=== PATIENT | female | born 1950 | race Caucasian/White ===

== ENCOUNTER 2017-03-08 05:42 | Emergency (ER) | payer BC ==
[2017-03-08] MEDS ORDERED: NORMAL SALINE 10 ML SYRINGE FLUSH IVP PRN (06:07)
[2017-03-08 06:11] LABS: BASOPHILS # (AUTO) 0.11 10*3/UL; BASOPHILS % (AUTO) 1.4 % (0-1); EOSINOPHILS # (AUTO) 0.13 10*3/UL; EOSINOPHILS % (AUTO) 1.7 % (0-8); HEMATOCRIT 43.5 % (37.0-47.0); LYMPHOCYTES # (AUTO) 1.92 10*3/uL; MEAN CORPUSCULAR HEMOGLOBIN 28.7 PG (27-31); MEAN CORPUSCULAR HGB CONC 34.5 g/dL (33-37); MEAN CORPUSCULAR VOLUME 83.2 FL (81-99); MEAN PLATELET VOLUME 10.8 FL (7.4-12.2); MONOCYTES # (AUTO) 0.76 10*3/UL (0.3-0.8); NEUTROPHILS # (AUTO) 4.69 10*3/UL; NEUTROPHILS % (AUTO) 61.4 % (50-80); PLATELET MORPHOLOGY COMMENT NORMAL MORPHOLOGY (NORM); RBC MORPHOLOGY COMMENT NORMAL MORPHOLOGY (NORM); RED BLOOD COUNT 5.23 10^6/uL (4.20-5.40); WBC MORPHOLOGY COMMENT NORMAL MORPHOLOGY (NORM)
[2017-03-08] MEDS ORDERED: ASPIRIN 81 MG (BABY) CHEWABLE TABLET ONE (06:11)
[2017-03-08 06:12] VITALS: RESP 22; TEMP 97.7
[2017-03-08] MEDS: ASPIRIN 81 MG (BABY) CHEWABLE TABLET PO ONE (06:14)
[2017-03-08] MEDS: Sodium Chloride 0.9% 1,000 ML PRIMARY IV ONE (06:14)
[2017-03-08 06:15] LABS: CALCIUM 9.6 mg/dL (8.7-10.7)
--- NOTE | 2017-03-08 06:16 | EKG ---
[address] [address] Measurements Intervals [place] Rate: 92 P: 21 NM: 161 QRS: 8 QRSD: 100 T: -2 QT: 333 QTc: 382 Interpretive Statements SINUS RHYTHM LOW QRS VOLTAGE IN PRECORDIAL LEADS [QRS DEFLECTION < 1.0 mV IN CHEST LEADS] MINIMAL ST DEPRESSION [0.025+ mV ST DEPRESSION] No previous ECG available for comparison Electronically Signed On 03-09-17 11:04:38 MDT by Jasper Burger MD [email or web address]
[2017-03-08 06:23] LABS: TROPONIN I < 0.012 ng/mL (< 0.040)
--- NOTE | 2017-03-08 08:31 | DI ---
HISTORY: Chest pain. FINDINGS/IMPRESSION: Suboptimal inspiration with low lung volumes. Minimal bibasilar atelectasis. Mild thickening of the right paratracheal stripe.
--- NOTE | 2017-03-08 08:34 | DI ---
HISTORY: Sudden onset of chest pain this morning, worse with movement or in supine position. Elevat ed D-dimer. TECHNIQUE: Contrast-enhanced images of the chest were obtained and submitted for interpretation. FINDINGS: The pulmonary arteries opacify normally. No focal filling defects identified. The distal segmental and subsegmental pulmonary arteries are poorly opacified. There is no mediastinal, axillary, or hilar adenopathy. There is no pleural or pericardial effusion. The heart is enlarged. The trachea, main, and segmental bronchi demonstrate no endobronchial lesio ns. There are bibasilar opacities suggestive of atelectasis. There is no focal pulmonary nodule or pulmo nary mass. Limited sections of the upper abdomen demonstrate no acute findings. The visualized osseous structures demonstrate no destructive abnormality. IMPRESSION: 1. No CT evidence of pulmonary embolism.
--- NOTE | 2017-03-08 08:48 | PDOC ---
Chest Pain HPI - General Chief Complaint: Chest Pain Stated Complaint: DYSPNEA WITH CHEST PAIN X 1 HR Date Seen by Provider: 03/08/17 Time Seen by Provider: 05:47 Source: Patient Exam Limitations: POSITIVE: No limitations Treatment Prior to Arrival: REPORTS: None Nurse's Notes Reviewed & Considered: Yes - History of Present Illness Initial Comments: The patient is a 66-year-old female. She and her drove down from [place] to attend the patient's mother's in [place]. They are on their way back to [place]. 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 She states her discomfort is exacerbated by deep inspiration and lying flat. She states she has no known history of cardiopulmonary problems. She does have a history of hypothyroidism for which she takes levothyroxine, 75 g daily. No similar previous episodes. No fevers or cough. No leg pain. She states her pain is reproduced by direct palpation over the left anterior chest wall as above. Body Location Affected: REPORTS: Chest Timing: REPORTS: Abrupt Duration: 1 hour Severity: Moderate Persistent/Worse since (date): 03/08/17 Persistent/Worse since (time): 06:00 Context: REPORTS: Rest Quality: REPORTS: "Pain", Sharpness, Stabbing Radiation: REPORTS: None Associated Symptoms: REPORTS: Hurts to Breathe, Other (Pain on palpation left medial anterior chest wall) Modifying Factors: improves with: Movement, Position Change, Pressing On Area Similar Symptoms Previously: No Recently seen/treated/hospitalized: No Any Prior Injuries Related to Current Complaint?: No - Patient Home Medications Home Medications: Home Medications Levothyroxine Sodium 75 mcg PO DAILY 03/08/17 - Patient Allergies Allergies/Adverse Reactions: Allergies Allergy/AdvReac Type Severity Reaction Status Date / Time aspirin [From Percodan] AdvReac VOMITING Verified 03/08/17 06:01 meperidine HCl [From Demerol] AdvReac VOMITING Verified 03/08/17 06:01 morphine AdvReac VOMITING Verified 03/08/17 06:01 oxycodone HCl [From Percodan] AdvReac VOMITING Verified 03/08/17 06:01 oxycodone terephthalate AdvReac VOMITING Verified 03/08/17 06:01 [From [facility]] Past Medical History - heen HEENT History: Denies History Cardiovascular History: Denies History Respiratory History: Asthma Gastrointestinal History: Gallbladder Disease, Other (please comment) Additional Gastrointestinal History: Mariia. Appendectomy Genitourinary History: Denies History Endocrine History: Hypothyroidism Musculoskeletal History: Other (please comment) Prosthesis or Implant: No Additional Musculoskeletal History: Bilateral shoulder surgery Neurological History: Denies History Blood Disorders: Denies History Psychiatric History: Denies History Female Reproductive History: Denies History Obstetrical History: Delivery Additional Obstetrical History: x2 Cancer History: Denies History In Past Year Been Physically Harmed or Verbally Threatened: No History of MDRO: No Tobacco Use: Never Smoker Alcohol Use: None Substance Use Type: None Previous Surgical History: Yes Type / Date of Surgery: Mariia. Appendectomy. Bilateral shoulder surgery. Tonsilectomy/adnoidectomy. C-sectionx2 Significant Family History: No pertinent family hx Past Medical History Reviewed: Reviewed - No Changes ROS - Limitations ROS Limitations: No Limitations Constitution: REPORTS: Denies Symptoms Cardiovascular: REPORTS: Chest Pain Respiratory: REPORTS: Hurts To Breathe Neurological: REPORTS: Denies Neuro Symptoms Gastrointestinal: REPORTS: Denies GI Symptoms Endocrine: REPORTS: Denies Symptoms Musculoskeletal: REPORTS: Other (Pain on direct palpation left anterior chest wall) Genitourinary: REPORTS: Denies Symptoms Eyes: REPORTS: Denies Symptoms ENT: REPORTS: Denies Symptoms Skin: REPORTS: Denies Skin Symptoms Lympathic: REPORTS: Denies Lympathic Symptoms Immunologic: POSITIVE: Denies Symptoms Psychiatric: POSITIVE: Denies Psych Symptoms Chest Pain PE - General Appearance General Appearance: REPORTS: Alert, Cooperative, No Acute Distress, No Evidence of Trauma - HEENT HEENT: POSITIVE: Head Inspection Nml, Eyes Inspection Nml, Ears Inspection Nml, Nose Inspection Nml, Oral/Dental Inspect. Nml, Pharynx Inspect. Nml, PERRL, EOMI - Neck Neck: REPORTS: Normal Inspection, No Carotid Bruit - Respiratory Respiratory: REPORTS: No Respiratory Distress, Breath Sounds Normal. DENIES: Chest Non-Tender (Pain on direct palpation left anterior chest wall, superomedial aspect) - Cardiovascular Cardiovascular: REPORTS: Regular Rate and Rhythm, Heart Sounds Normal, Equal Pulses, Strong Pulses, No Murmur, No Gallop, No Friction Rub, No JVD Peripheral Pulses: Radial (R): 2+, Radial (L): 2+ - Abdomen Abdomen: Soft: (All Quadrants), Normal Bowel Sounds: (All Quadrants), Denies Tenderness: (All Quadrants), No Splenomegaly: (All Quadrants), No Hepatomegaly: (All Quadrants), No Guarding: (All Quadrants), No Rebound: (All Quadrants), No Palpable Pulse: (All Quadrants), No Palpabale Mass: (All Quadrants), No Distention: (All Quadrants), No Rigidity: (All Quadrants) - Skin Skin: REPORTS: Intact, Normal For Race, Warm, Dry, No Rash - Extremities Extremity: Non-Tender: (All Extremities), Normal ROM: (All Extremities), Normal Inspection: (All Extremities) - Neurological / Psychological Neurological: POSITIVE: Oriented X3, 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 CTA of chest shows no pulmonary embolus or other acute abnormalities Lab Results Reviewed: Yes Lab Results:: Laboratory Results 03/08/17 Range/Units 06:11 WBC 7.63 (4.8-10.8) 10^3/uL RBC 5.23 (4.20-5.40) 10^6/uL Hgb 15.0 (12.0-16.0) g/dL Hct 43.5 (37.0-47.0) % MCV 83.2 (81-99) FL MCH 28.7 (27-31) PG MCHC 34.5 (33-37) g/dL RDW Std Deviation 44.6 (39-50) fL RDW Coeff of Wolf 14.7 H (11.5-14.5) % Plt Count 248 (140-350) 10*3/uL MPV 10.8 (7.4-12.2) FL Immature Gran % (Auto) 0.3 (0-5) % Neut % (Auto) 61.4 (50-80) % Lymph % (Auto) 25.2 (10-50) % [place] % (Auto) 10.0 (5-15) % Eos % (Auto) 1.7 (0-8) % Baso % (Auto) 1.4 H (0-1) % Immature Gran # (Auto) 0.02 10*3/UL Neut # (Auto) 4.69 10*3/UL Lymph # (Auto) 1.92 10*3/uL [place] # (Auto) 0.76 (0.3-0.8) 10*3/UL Eos # (Auto) 0.13 10*3/UL Baso # (Auto) 0.11 10*3/UL WBC Morphology Comment Normal morphology (NORM) Plt Morphology Comment Normal morphology (NORM) RBC Morph Comment Normal morphology (NORM) D-Dimer 0.66 H (0.00-0.59) mg/L Sodium 143 (135-145) meq/L Potassium 4.1 (3.8-5.2) meq/L Chloride 111 (98-112) meq/L Carbon Dioxide 22 L (23-33) meq/L Anion Gap 10 (5-20) BUN 18 (7-22) mg/dL Creatinine 1.0 (0.50-1.20) mg/dL Estimated GFR 56 (>60 ml/min/1.73m(2)) BUN/Creatinine Ratio 18.00 (6-20) Glucose 104 (78-110) mg/dL Calculated Osmolality 297.0 H (267-292) mOsm/kg Calcium 9.6 (8.7-10.7) mg/dL Total Bilirubin 0.7 (0.3-1.2) mg/dL AST 31 (8-39) IU/L ALT 28 (9-52) IU/L Alkaline Phosphatase 141 H (38-126) IU/L CK-MB (CK-2) 0.70 (0.00-5.00) NG/ML Troponin I < 0.012 (< 0.040) ng/mL Total Protein 6.9 (6.1-8.0) g/dL Albumin 4.0 (3.5-4.8) g/dL Globulin 2.9 (2.50-4.10) g/dL Albumin/Globulin Ratio 1.30 (1.3-2.0) mg/g EKG Interpreted/Reviewed By Me:: Yes (normal) EKG Interpretation:: POSITIVE: Normal Sinus Rhythm, Normal Rate, Normal Intervals, Normal [place], Normal QRS, Normal ST/T - Patient's Progress Pain Medication Addressed: POSITIVE: Not Applicable School/Work Release Addressed: POSITIVE: Not Applicable Re-Examine Time: 08:25 Re-Examine Comment: Patient rested comfortably in the emergency room. She still has some pain on palpation of the left chest wall. Status: POSITIVE: Unchanged, Re-Examined Quality Measure Initiative: CP/AMI: POSITIVE: EKG, ASA - Consult Counseled: POSITIVE: Patient, Family (), RE: Lab Results, RE: Radiology Results, RE: DX, RE: Need for F/U Patient Care Time - Estimated PCT Patient Care Time (In Minutes): 40 Vital Signs - Recent Vital Signs Vital Signs: Vital Signs (Last 8 hours) Temp Pulse Pulse Resp BP Pulse Ox 03/08/17 06:12 73 03/08/17 05:45 97.7 F 98 98 22 163/105 96 - VS Reviewed Vital Signs Reviewed: Yes Discharge Clinical Impression: Atypical chest pain, Chest wall pain Discharge Disposition: Discharged to Home Condition: Good Patient Instructions Given at Discharge: Chest Pain (ED) Additional Instructions: I believe that your chest pain is most likely due to musculoskeletal discomfort or possibly pleurisy. Electrocardiogram is normal as is your chest x-ray and all your blood work. CT of the chest shows no blood clots in the lung. Please apply warm moist compresses to the area of your chest wall pain. Advil or Tylenol for discomfort. Follow-up with your primary care provider. Return here anytime if condition worsens in any way. It would probably be a good idea to take one baby aspirin daily as a prophylactic measure against heart attacks and strokes. Follow Up With: NOT IN TABLE, [Primary Care Provider] - (Instructions as above. Return as necessary. Follow-up with your primary care provider when you return to [place].)
== END 2017-03-08 08:47 | disposition home or self-care (01) ==
LOC: ER 05:42
DX: R07.89 Other chest pain (principal); R06.02 Shortness of breath
CPT/HCPCS: 71010; 71275; 80053; 82553; 84484; 85025; 85379; 93005; 93010; 99284; J7030